=== PATIENT | male | born 1955 | race Caucasian/White ===

== ENCOUNTER 2020-04-09 09:13 | Outpatient (CLI) | payer MEDICARE, MEDICAID ==
[~2020-04-09 09:13] MED LIST: Iopamidol 370 76% 100 ML VIAL ONE
--- NOTE | 2020-04-09 10:39 | CT ---
CT Abdomen W WO Con History: Liver mass Comparison: CT abdomen March 31, 2020. CT chest 2006 Findings: Lung bases are clear. No pericardial effusion. 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 No perianeurysmal hemorrhage. Aneurysmal dilatation of the iliac arteries. Spleen is unremarkable. Cholelithiasis is present. No acute cholecystitis. No dilated loops of bowel. Moderate narrowing of the superior mesenteric aubree ry ostia due to calcific plaque. Chronic appearing L4 vertebral body height loss, 30-40% anteriorly. No acute osseous abnormality. Lar ge disc osteophyte complex at L5/S1 causes [id number] neural foraminal narrowing. Within hepatic segment 8 abutting the capsule is enhancing 13 mm mass with mild arterial and portal v enous hyperattenuation with the delayed phase isodense to the liver. Within hepatic segment 6 this subcapsular peripheral 2.3 cm lobular mass which matches the portal venous blood pool. Portal vein is patent. Is normal. Pancreas is normal. The appendix is visualized and is normal. 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 Follow-up MRI in 6 months - 1 year utilizing Eovist contrast would be conclusive.
== END 2020-04-09 09:14 | disposition home or self-care (01) ==
LOC: NAV CT 09:13
PROVIDERS: ATTEND Internal Medicine Gastroenterology
DX: R16.0 Hepatomegaly, not elsewhere classified (principal)
CPT/HCPCS: 74170; Q9967

== ENCOUNTER 2021-12-22 11:18 | Emergency (ER) | payer OTHER, MEDICAID ==
[2021-12-22] MEDS ORDERED: Sodium Chloride 0.9% 500 ML ONE (11:52)
[2021-12-22 11:58] LABS: #Basophils 0.1 thou/uL (0.0-0.2); #Lymphocytes 0.8 thou/uL (1.20-3.40); #Monocytes 0.7 thou/uL (0.11-0.59); #Neutrophils 10.7 thou/uL (1.40-6.50); %Basophils 0.5 % (0.0-1.0); %Eosinophils 0.1 % (0.0-10.0); %Lymphocytes 6.3 % (21.0-51.0); %Monocytes 5.4 % (0.0-10.0); %Neutrophils 87.8 % (42.0-75.0); Hemoglobin 15.3 g/dL (14.0-18.0); Mean Corpuscular HGB CONC 31.3 g/dL (32.0-36.0); Mean Corpuscular Hemoglobin 31.7 pg (27.0-31.0); Mean Platelet Volume 8.4 fL (7.4-10.4); Platelet Count 161 thou/uL (130-400); RBC Distribution Width 12.3 % (11.5-14.5); Red Blood Cell (RBC) Count 4.83 mill/uL (4.70-6.10); White Blood Cell (WBC) Count 12.2 thou/uL (4.8-10.8)
[2021-12-22 12:10] LABS: ALT (SGPT) 28 U/L (8-55); AST (SGOT) 28 U/L (5-34); Albumin 4.2 g/dL (3.4-4.8); Alkaline Phosphatase 96 U/L (40-110); Anion Gap 27 mmol/L (10-20); BUN (Urea Nitrogen) 40 mg/dL (8.4-25.7); CK (CPK) 109 U/L (30-200); Calc. Creatinine Clearance 0 mL/min (70-130); Calcium 9.5 mg/dL (7.8-10.44); Carbon Dioxide 15 mmol/L (23-31); Chloride 102 mmol/L (98-107); Estimated GFR 36; Globulin 4.8 g/dL (2.4-3.5); Glucose 126 mg/dL (80-115); Potassium 4.5 mmol/L (3.5-5.1); Sodium 139 mmol/L (136-145)
[2021-12-22] MEDS ORDERED: Sodium Chloride 0.9% 1,000 ML ONE (12:30)
[2021-12-22] MEDS ORDERED: Ondansetron PF 4 MG/2 ML Vial ONE (13:10)
[2021-12-22] MEDS ORDERED: Boostrix 0.5 ML (Tdap) VIAL ONE (13:17)
[2021-12-22] MEDS ORDERED: Morphine 4 MG/ML VIAL ONE (13:17)
[2021-12-22 13:28] LABS: INR-International Normal Ratio 1.3; Prothrombin Time 16.6 sec (12.0-14.7)
[2021-12-22 13:32] LABS: PTT 26.4 sec (22.9-36.1)
== END 2021-12-22 14:15 | disposition short-term general hospital (02) ==
LOC: NAV ERS 11:18
DX: S06.360A Traumatic hemorrhage of cerebrum, unspecified, without loss of consciousness, initial encounter (principal); S42.342A Displaced spiral fracture of shaft of humerus, left arm, initial encounter for closed fracture; S01.412A Laceration without foreign body of left cheek and temporomandibular area, initial encounter; N17.9 Acute kidney failure, unspecified; R93.0 Abnormal findings on diagnostic imaging of skull and head, not elsewhere classified; F17.210 Nicotine dependence, cigarettes, uncomplicated; W19.XXXA Unspecified fall, initial encounter; Z23 Encounter for immunization; Z86.73 Personal history of transient ischemic attack (TIA), and cerebral infarction without residual deficits; Z79.899 Other long term (current) drug therapy
CPT/HCPCS: 70450; 70486; 72125; 80053; 82550; 85025; 85610; 85730; 90471; 90715; 94760; 96374; 96375; J2270; J2405; J7030; J7050